=== PATIENT | male | born 1950 | race Caucasian/White ===

== ENCOUNTER 2016-06-06 02:20 | Inpatient (IN) | payer MEDICARE, OTHER ==
--- NOTE | ~2016-06-06 | HP ---
History And Physical [address] [address] NAME: EDWIN LENTZ : 46 STATUS : ADM IN PAT#: [id number] AGE: 66 ADM/REG DATE : 06/06/16 MR#: [id number] REPORT SERV DATE: 06/06/16 DICTATED BY: DIPIKA HAGAN DATE: 06/06/16 REPORT STATUS : Draft TRANSCRIBED BY: MODL DATE: 06/06/16 DATE OF ADMISSION: 06/06/2016 CHIEF COMPLAINT: A 66-year-old male presenting with right leg ulcer and infection. HISTORY OF PRESENT ILLNESS: The patient's history was obtained through careful interview with the patient and , coupled with review of [facility] medical records. For about a week now, the patient has had a new-onset increasing right lopez ulcer, but about three days ago began to have increasing redness and purulent drainage. He was placed on doxycycline several days ago, but has only had extension of these symptoms. The patient has underlying cirrhosis with hepatic encephalopathy. He also has progressive Parkinson disease. He has fallen about seven or eight times in the last three months and has been having increasing problems with Parkinson's related dementia and gait instability. He describes right leg discomfort, aching quality, 8/10 in severity. He has had nausea and vomiting today. No fevers or chills. He claims his diabetes is under good control. REVIEW OF SYSTEMS: Otherwise, a 14-point review of systems was obtained and was negative. PAST MEDICAL HISTORY: 1. Cirrhosis, thought to be MADRIGAL. 2. Hepatic encephalopathy. 3. Parkinson disease. 4. Benign prostatic hypertrophy, seen by Dr. Godinez. 5. Diabetes. 6. Restless legs syndrome. 7. Hypertension. 8. Colon polyps, gastric polyps. 9. Portal hypertension gastropathy. 10.Peptic ulcer disease. PAST SURGICAL HISTORY: 1. Lumbar spine surgery x5. 2. Yun fundoplication. 3. Elbow surgery. 4. Left knee surgery x3. 5. Right knee surgery. 6. Benign retro mediastinal tumor surgery. History And Physical [address] [address] NAME: EDWIN LENTZ : 46 STATUS : ADM IN PAT#: [id number] AGE: 66 ADM/REG DATE : 06/06/16 MR#: [id number] REPORT SERV DATE: 06/06/16 DICTATED BY: DIPIKA HAGAN DATE: 06/06/16 REPORT STATUS : Draft TRANSCRIBED BY: NELIDA DATE: 06/06/16 ALLERGIES: TO REGLAN, SULFA, AND CODEINE. SOCIAL HISTORY: No tobacco abuse. No alcohol abuse. He is and has three children. Retired from foundry work. He lives in [place], [place]. FAMILY HISTORY: Brother with stomach cancer. Brother with renal cell carcinoma. A strong family history of heart disease, also family history of breast cancer. CURRENT MEDICATIONS: Include aspirin 81 mg p.o. daily, Bumex 2 mg p.o. daily, carbidopa- levodopa two tablets p.o. t.i.d., Coreg 6.25 mg p.o. b.i.d., vitamin D, doxycycline 100 mg p.o. b.i.d., lactulose 30 mL p.o. t.i.d., magnesium 400 mg p.o. b.i.d., metformin 500 mg as needed, fish oil, Prilosec 20 mg p.o. b.i.d., Requip 4 mg p.o. t.i.d., Aldactone 100 mg p.o. b.i.d., and vitamin E. PHYSICAL EXAMINATION: VITAL SIGNS: Temperature 97.6, pulse 66, blood pressure 104/61, respiratory rate 16, and O2 saturation 97% on room air. GENERAL: A chronically ill-appearing male, in no evidence of acute distress. HEENT: Pupils are equal, round, and reactive to light. No conjunctival pallor. No scleral icterus. Nares are patent. Oropharynx is clear of obstruction. Moist mucous membranes. NECK: Trachea midline. No thyromegaly. LYMPH: No cervical lymphadenopathy. No supraclavicular lymphadenopathy. No inguinal lymphadenopathy. RESPIRATORY: Clear to auscultation at bases. No wheezes, rales, or rhonchi. Normal respiratory effort. CARDIOVASCULAR: Regular rate and rhythm. No murmurs, rubs, or gallops. The patient has chronic appearing lower extremity edema. The right leg is slightly more involved than the left. ABDOMEN: Soft, nontender, and nondistended. Normal bowel sounds auscultated throughout. No hepatosplenomegaly. DERMATOLOGICAL: The patient's right lower extremity, the lopez area has a large ulceration with purulent drainage and surrounding erythema, heat, swelling, and tenderness. Otherwise, warm and dry extremities. No pallor. No cyanosis. PSYCHIATRIC: Normal affect. Good mood. Alert and oriented x3. LABORATORY DATA: Lactic acid 1.5. Procalcitonin negative. White blood cell count 4.8, hemoglobin 12, hematocrit 35, and platelets 175. Sodium 141, potassium 4.4, chloride 104, bicarb 24, BUN 24, creatinine 1.1, and glucose 149. ASSESSMENT AND PLAN: 1. Diabetic leg ulcer with cellulitis. Check blood cultures. Check wound cultures. Place on IV vancomycin and IV Zosyn for now. 2. Lymphedema. Check a venous Doppler ultrasound to rule out deep venous thrombosis. 3. Parkinson's with increasing debilitation. 4. Diabetes. Check hemoglobin A1c. Place on sliding scale insulin for now. 5. Cirrhosis. Check ammonia level. History And Physical [address] [address] NAME: EDWIN LENTZ : 46 STATUS : ADM IN PAT#: [id number] AGE: 66 ADM/REG DATE : 06/06/16 MR#: [id number] REPORT SERV DATE: 06/06/16 DICTATED BY: DIPIKA HAGAN DATE: 06/06/16 REPORT STATUS : Draft TRANSCRIBED BY: NELIDA DATE: 06/06/16 BUBBAL/NELIDA Dipika Hagan M.D. / [id number] CC: Sariah Perrin MIRANDA SWAFFORD Chirag Patel, M.D.
--- NOTE | ~2016-06-06 | DS ---
Discharge Summary [address] [place]. [address] NAME: EDWIN LENTZ : 46 STATUS : ADM IN [facility]#: [id number] AGE: 66 ADM/REG DATE : 06/06/16 MR#: [id number] REPORT SERV DATE: 06/09/16 DICTATED BY: RON ROBISON DATE: 06/09/16 REPORT STATUS : Draft TRANSCRIBED BY: MODMisbah DATE: 06/09/16 ADMISSION DATE: 06/06/2016 DISCHARGE DATE: 06/09/2016 DIAGNOSES ON ADMISSION: 1. Diabetic ulcer with cellulitis. 2. Lymphedema. 3. Parkinson disease with increasing debilitation. 4. Diabetes. 5. History of cirrhosis of the liver. DIAGNOSES ON DISCHARGE: 1. Right lower extremity cellulitis, resolved. Superficial right lopez ulcer, improved. No evidence of any pus. The wound looks clean. Wound cultures are negative. The patient is afebrile and switched from intravenous antibiotics to doxycycline to continue for 10 more days. 2. History of Parkinson disease. 3. Diabetes mellitus, controlled by diet. 4. History of obstructive sleep apnea, noncompliant with the CPAP mask. 5. 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 HOSPITAL COURSE: I personally saw the patient on the last day of discharge. The patient was seen by Dr. Ashley Izquierdo before. The patient was doing well. His wound cultures came back negative. Cellulitis completely resolved, and skin was clean on the superficial ulcer on the anterior lopez. He needs to complete doxycycline for 10 more days, and he needs to continue wound care. DISCHARGE MEDICATIONS: Aspirin 81 mg daily; Bumex 2 mg daily; Sinemet 25/100 two tablets three times a day; carvedilol 6.25 p.o. twice a day; vitamin D3, 1000 units daily; lactulose 30 mL three times a day; magnesium oxide 400 p.o. b.i.d.; omega-3 fatty acids 1000 mg daily; omeprazole 20 mg a day; Requip 4 mg p.o. three times a day, spironolactone 100 mg b.i.d.; metformin 500 mg daily; hydrocodone and acetaminophen one tablet p.o. q.6 hours p.r.n. for pain, total 12 pills, no refills were given to the patient. The patient was discharged in stable condition. I spent 45 minutes on discharge. Everything was discussed with the patient and his . MG/MODL Ron Robison M.D. / [id number] Discharge Summary [address] [address] NAME: EDWIN LENTZ : 46 STATUS : ADM IN PAT#: [id number] AGE: 66 ADM/REG DATE : 06/06/16 MR#: [id number] REPORT SERV DATE: 06/09/16 DICTATED BY: RON ROBISON DATE: 06/09/16 REPORT STATUS : Draft TRANSCRIBED BY: NELIDA DATE: 06/09/16 CC: Sariah Perrin Miranda [facility]
[~2016-06-06 02:20] MED LIST: ACET500CAP PO; ASAB PO; ATEN25 PO; CIP5 PO; CONSTULOSE PO; COREG6 PO; COZAAR100 MG PO; DEMA20 PO; DULERA 100 MCG/13 GM INH; ENDOCET1 TA4 PO; FISH-EPA1000 MG PO; GLUCPH PO; HORIZANT600 MG PO; HYT1 PO; K-TABS10 MEQ PO; KLOR-CON-2525 MEQ PO; L40 PO; LACTOSE PO; MIRALAXPKT PO; MYSOLINE50 MG OR; NEUPRO 6MG6 MG/24 HR TOP; OXYCON10 PO; PR25 PO; PREV30 PO; PRILOSEC40 MG PO; PRIM50B PO; REQUIP XL12 MG PO; REQUIP XL8 MG PO; RESTORIL30 MG OR; SIN-CR PO; SOMATAB PO; STALEVO 200 OR; UTA PO; VITAMIN D31000 UNIT PO; VITE1000 PO; ZETIA PO
[2016-06-06 02:46] LABS: BASOPHILS 0.2 %; BASOPHILS ABSOLUTE 0.01 10/3/uL (0.0-0.16); EOSINOPHILS 0.8 %; EOSINOPHILS ABSOLUTE 0.04 10/3/uL (0.0-0.53); ER CBC TAT 0 Hrs 00 Mins; HEMATOCRIT 34.9 % (40.0-51.0); HEMOGLOBIN 12.2 g/dL (13.6-17.8); IMMATURE GRANULOCYTES 0.6 %; IMMATURE GRANULOCYTES ABSOLUTE 0.03 10/3/uL (0.0-0.11); LYMPHOCYTES 24.6 %; LYMPHOCYTES ABSOLUTE 1.18 10/3/uL (0.67-4.30); MEAN PLATELET VOLUME 8.9 fL (9.2-13.0); MONOCYTES 9.6 %; MONOCYTES ABSOLUTE 0.46 10/3/uL (0.21-1.20); NEUTROPHILS 64.2 %; NEUTROPHILS ABSOLUTE 3.08 10/3/uL (2.02-8.40); PLATELET COUNT 175 10/3/uL (150-400); RBC DISTRIBUTION WIDTH 13.3 % (12.0-16.0); RED CELL COUNT 3.49 10/6/uL (4.7-6.1); WHITE BLOOD CELLS 4.8 10/3/uL (4.5-10.5)
[2016-06-06 02:48] LABS: MANUAL DIFF NO %
[2016-06-06 03:02] LABS: ALBUMIN 3.5 G/DL (3.5-5.0); ALKALINE PHOSPHATASE 110 U/L (45-117); CALCIUM, SERUM 8.9 MG/DL (8.5-10.4); CHLORIDE, SERUM 104 MMOL/L (96-112); CO2 (CARBON DIOXIDE) 29 MMOL/L (24-34); GFR AFRICAN AMERICAN 80 ML/MIN (>=60); GFR NON AFRICAN AMERICAN 69 ML/MIN (>=60); GLOBULIN 3.6 G/DL (2.5-4.1); POTASSIUM, SERUM 4.4 MMOL/L (3.5-5.3); SGOT(AST) 12 U/L (5-40); SGPT(ALT) 7 U/L (5-65); SODIUM, SERUM 141 MMOL/L (135-148); TOTAL BILIRUBIN 0.6 MG/DL (0-1.2); TOTAL PROTEIN 7.1 G/DL (6.0-8.5)
[2016-06-06 03:03] LABS: BUN (BLOOD UREA NITROGEN) 24 MG/DL (6-23); GLUCOSE, SERUM 149 MG/DL (60-99)
[2016-06-06 03:06] LABS: LACTATE 1.5 MMOL/L (0.3-2.4)
[2016-06-06 03:42] LABS: PROCALCITONIN <0.05 ng/mL (<0.5)
[2016-06-06] MEDS ORDERED: FISH-EPA1000 MG PO (04:36)
[2016-06-06] MEDS ORDERED: COREG6 PO (04:37)
[2016-06-06] MEDS ORDERED: VITAMIN D31000 UNIT PO (04:37)
[2016-06-06] MEDS ORDERED: SIN25 PO (04:38)
[2016-06-06] MEDS ORDERED: PRILO PO (04:38)
[2016-06-06] MEDS ORDERED: SPIR100 PO (04:39)
[2016-06-06] MEDS ORDERED: BUM2 PO (04:39)
[2016-06-06] MEDS ORDERED: ASAB PO (04:40)
[2016-06-06] MEDS ORDERED: REQUIP4 MG PO (04:40)
[2016-06-06] MEDS ORDERED: CONSTULOSE PO (04:43)
[2016-06-06] MEDS ORDERED: DORYX150 MG PO (04:44)
[2016-06-06] MEDS ORDERED: GLUCPH PO (04:44)
[2016-06-06] MEDS ORDERED: MAGOX4 PO (04:45)
[2016-06-06] MEDS ORDERED: VITE1000 PO (04:45)
[2016-06-06 12:26] LABS: B NATRIURETIC PEPTIDE (BNP) 63.2 PG/ML (< 100.0)
[2016-06-06 12:29] LABS: TROPONIN I <0.02 NG/ML (<0.05)
[2016-06-07 06:20] LABS: BASOPHILS 0.4 %; BASOPHILS ABSOLUTE 0.02 10/3/uL (0.0-0.16); EOSINOPHILS 0.8 %; EOSINOPHILS ABSOLUTE 0.04 10/3/uL (0.0-0.53); HEMATOCRIT 35.5 % (40.0-51.0); HEMOGLOBIN 12.6 g/dL (13.6-17.8); IMMATURE GRANULOCYTES 0.4 %; IMMATURE GRANULOCYTES ABSOLUTE 0.02 10/3/uL (0.0-0.11); LYMPHOCYTES 21.4 %; LYMPHOCYTES ABSOLUTE 1.01 10/3/uL (0.67-4.30); MEAN CORPUS HGB CONC 35.5 g/dL (32.0-36.0); MEAN CORPUSCULAR HEMOGLOB 35.1 pg (26.0-34.0); MEAN CORPUSCULAR VOLUME 98.9 fL (80-100); MEAN PLATELET VOLUME 9.5 fL (9.2-13.0); MONOCYTES 8.9 %; MONOCYTES ABSOLUTE 0.42 10/3/uL (0.21-1.20); NEUTROPHILS 68.1 %; PLATELET COUNT 174 10/3/uL (150-400); RBC DISTRIBUTION WIDTH 13.5 % (12.0-16.0); RED CELL COUNT 3.59 10/6/uL (4.7-6.1); WHITE BLOOD CELLS 4.7 10/3/uL (4.5-10.5)
[2016-06-07 06:21] LABS: MANUAL DIFF NO %
[2016-06-07 06:24] LABS: INTERNATIONAL NORMAL RATI 1.1 UNITS (-); PARTIAL THROMBO TIME 27.5 SEC (22.5-37.2); PROTIME (NOT ORD) 13.8 SEC (12.0-14.5)
[2016-06-07 06:32] LABS: BUN (BLOOD UREA NITROGEN) 26 MG/DL (6-23); CALCIUM, SERUM 9.4 MG/DL (8.5-10.4); CHLORIDE, SERUM 100 MMOL/L (96-112); CO2 (CARBON DIOXIDE) 26 MMOL/L (24-34); GFR AFRICAN AMERICAN 89 ML/MIN (>=60); GFR NON AFRICAN AMERICAN 77 ML/MIN (>=60); SODIUM, SERUM 134 MMOL/L (135-148)
[2016-06-07 06:33] LABS: GLUCOSE, SERUM 113 MG/DL (60-99); POTASSIUM, SERUM 4.3 MMOL/L (3.5-5.3)
[2016-06-07 07:21] LABS: GLYCOHEMOGLOBIN (HbA1c) 5.8 % (4.7-6.1)
[2016-06-09 06:44] LABS: BUN (BLOOD UREA NITROGEN) 36 MG/DL (6-23); CALCIUM, SERUM 10.2 MG/DL (8.5-10.4); CHLORIDE, SERUM 94 MMOL/L (96-112); CO2 (CARBON DIOXIDE) 32 MMOL/L (24-34); CREATININE 1.18 MG/DL (0.70-1.30); GFR AFRICAN AMERICAN 73 ML/MIN (>=60); GFR NON AFRICAN AMERICAN 63 ML/MIN (>=60); GLUCOSE, SERUM 140 MG/DL (60-99); POTASSIUM, SERUM 4.2 MMOL/L (3.5-5.3); SODIUM, SERUM 133 MMOL/L (135-148)
[2016-08-14] MEDS ORDERED: DULERA 100 MCG/13 GM INH (11:16)
[2016-10-25] MEDS ORDERED: HALF81 PO (19:51)
[2016-10-25] MEDS ORDERED: COREG6 PO (19:53)
[2016-10-25] MEDS ORDERED: SIN25 PO (19:53)
[2016-10-25] MEDS ORDERED: GLUCPH PO (19:54)
[2016-10-25] MEDS ORDERED: MAGOX4 PO (19:54)
[2016-10-25] MEDS ORDERED: PRILO PO (19:54)
[2016-10-25] MEDS ORDERED: REQUIP4 MG PO (19:55)
[2016-10-25] MEDS ORDERED: SPIR100 PO (19:55)
[2016-10-25] MEDS ORDERED: VITAMIN D31000 UNIT PO (19:56)
[2016-10-25] MEDS ORDERED: BUM2 PO ×2 (19:58→19:59)
[2016-10-25] MEDS ORDERED: VITE1000 PO (19:59)
[2016-10-25] MEDS ORDERED: FISH-EPA1000 MG PO (20:00)
[2016-10-25] MEDS ORDERED: KLONO5 PO (20:00)
== END 2016-06-09 16:16 | DRG 638 ==
LOC: ER 02:20 → 5NO 04:57
PROVIDERS: Hospitalist; Internal Medicine; Nurse Practitioner
DX: E11.628 Type 2 diabetes mellitus with other skin complications (principal); L03.115 Cellulitis of right lower limb; G20 Parkinson's disease; K75.81 Nonalcoholic steatohepatitis (NASH); G47.33 Obstructive sleep apnea (adult) (pediatric); K72.10 Chronic hepatic failure without coma; M25.512 Pain in left shoulder
CPT/HCPCS: 71010; 80048; 80053; 82140; 82962; 83036; 83605; 83735; 83880; 84145; 84443; 84484; 85025; 85610; 85730; 87070; 87205; 93970; 97162-GP; 99285; A9270-GY; G8978-CL-GP; G8979-CK-GP; J0690; J2543; J3370